=== PATIENT | male | born 1965 | race Caucasian/White ===

== ENCOUNTER 2020-05-21 13:55 | Outpatient (CLI) | payer OTHER, SELFPAY ==
--- NOTE | 2020-05-22 10:45 | WPDPFTINT ---
PFT Interpretation PFT Interpretation: This PFT met all criteria for ATS standards and reproducibility FEV/FVC post bronchodilator 64% FEV1 62% or 2.05 liters FVC 70% or 3.21 liters There was some improvement of post bronchodilator FEV by 9% and 180 ml TLC 155% or 10.04 liters RV 310% RV/TLC 69% DLCO 120% when adjusted for alveolar volume but not adjusted for hemoglobin Flow volume loops showed significant airflow obstruction Impression: Moderate airflow obstruction with some response to bronchodilators. Severe hyperinflation and severe air trapping are also present. Diffusion capacity is borderline elevated. This pattern is suggestive of severe Asthma but cannot rule out concomitant COPD. Clinical correlation is advised.
== END 2020-05-21 13:56 | disposition home or self-care (01) ==
PROVIDERS: PCP Family Medicine; Visit Provider Physician Assistant
DX: J45.909 Unspecified asthma, uncomplicated (principal); Z91.09 Other allergy status, other than to drugs and biological substances; R94.2 Abnormal results of pulmonary function studies
CPT/HCPCS: 94060; 94726; 94729